=== PATIENT | female | born 1960 | race Caucasian/White ===

== ENCOUNTER 2017-01-19 11:32 | Emergency (ER) | payer SELFPAY ==
[~2017-01-19] VITALS: Ht 154.9 cm; Wt 64.8 kg
[~2017-01-19 11:32] MED LIST: AGGRENOX1 CAPSULE PO; ATORVASTATIN CA20 MG PO; GABAPENTIN400 MG PO; LISINOPRIL-HCT1 EAC3 PO; NAPROXEN SODIU550 MG PO; TOPAMAX100 MG PO
[2017-01-19 12:12] LABS: MCH 29.6 PG (29.0-34.0); MCHC 34.8 G/DL (30.0-36.0); MCV 85.2 FL (83-99); MEAN PLAT.VOLUME 10.2 uM^3 (9.5-12.4); PLATELET COUNT 238 K/uL (156-360); RBC DIS.WIDTH-CV 13.2 % (11.8-14.6); RBC DIS.WIDTH-SD 41.3 % (39-53); RED BLOOD COUNT 4.93 M/uL (3.80-5.20); WHITE BLOOD COUNT 9.9 K/uL (4.1-10.2)
[2017-01-19 12:21] LABS: CHLORIDE 105 mEq/L (99-109); POTASSIUM 3.4 mEq/L (3.7-5.4); SODIUM 140 mEq/L (136-147)
[2017-01-19 12:22] LABS: GLUCOSE 91 mg/dL (70-99)
[2017-01-19 12:24] LABS: ANION GAP 11 MEQ/L (2-14)
[2017-01-19 12:26] LABS: GFR ESTIMATE (CALCULATED) > 59 mL/min/
[2017-01-19 12:27] LABS: UREA NITROGEN (BUN) 11 mg/dL (9-23)
[2017-01-19 13:49] LABS: ERTH.SED.RATE 15 MM/HR (0-30)
[2017-01-19 14:36] VITALS: BP 149/67
== END 2017-01-19 14:37 | disposition home or self-care (01) ==
LOC: EME 11:32
PROVIDERS: Emergency Medicine
DX: G43.909 Migraine, unspecified, not intractable, without status migrainosus (principal); I10 Essential (primary) hypertension; F17.200 Nicotine dependence, unspecified, uncomplicated
CPT/HCPCS: 80048; 85027; 85651; 99281; 99284; J1100; Q0164